=== PATIENT | female | born 1995 | race Caucasian/White ===

== ENCOUNTER 2020-01-22 12:45 | Outpatient (CLI) | payer OTHER ==
--- NOTE | 2020-01-22 13:59 | RAD ---
Hysterosalpingogram HISTORY: Infertility. FINDINGS: After explaining the procedure and answering all questions, the uterine cervix was carefull y prepped. HSG catheter introduced with retention balloon placed. Approximately 6 cc of Isovue contrast was carefully instilled into the endometrial cavity, revealing normal capacity and contour. There was early and free spill of contrast from each fallopian tube. Excess contrast was aspirated and catheter removed. Patient tolerated the procedure well and was dism issed in good condition. IMPRESSION : Normal exam.
== END 2020-01-22 12:46 | disposition home or self-care (01) ==
LOC: RAD 12:45
PROVIDERS: ATTEND Student in an Organized Health Care Education/Training Program
DX: N97.9 Female infertility, unspecified (principal)
CPT/HCPCS: 58340; 74740